=== PATIENT | male | born 1960 | race Caucasian/White ===

== ENCOUNTER 2019-05-12 | Emergency (ER) | payer SELFPAY ==
[2019-05-12 15:06] LABS: HEMATOCRIT 37.4 % (39.0-50.0); HEMOGLOBIN 13.1 g/dl (14.0-18.0); IMMATURE GRANULOCYTES 0.3 % (0.0-5.0); MEAN CELL VOLUME 99.5 fL CALC (80.0-100.0); MEAN CORPUSCULAR HGB 34.8 pG CALC (26.0-32.0); NEUT# 6.76 thou/uL (1.82-7.42); RED BLOOD COUNT 3.76 mill/uL (4.70-6.10); RED CELL DISTRI WIDTH 13.1 % (11.5-15.5)
[2019-05-12 15:23] LABS: BARBITURATES NEGATIVE (NEGATIVE); COCAINE NEGATIVE (NEGATIVE); METHADONE NEGATIVE (NEGATIVE); OXCYCODONE NEGATIVE (NEGATIVE); TETRAHYDROCANNABIONOL NEGATIVE (NEGATIVE); TRICYLIC ANTIDEPRESSANTS POSITIVE (NEGATIVE)
[2019-05-12 15:35] LABS: ANION GAP 21 (6-22 (CALC)); BUN 17 mg/dL (9-20); BUN/CREATININE RATIO 14 (12-20 (CALC)); CARBON DIOXIDE 21 mmol/l (22-30); CHLORIDE 97 mmol/l (95-108); CREATININE 1.2 mg/dL (0.7-1.3); ETHYL ALCOHOL 35 mg/dl (0-30); GFR > 60 ML/MIN (>=60 (CALC)); GFR FOR AFR.AMER. > 60 ML/MIN (>=60 (CALC)); POTASSIUM 3.9 mmol/l (3.5-5.1); SODIUM 135 mmol/l (137-146)
[2019-05-12] MEDS ORDERED: SILVADENE1 % EX (15:48)
[2019-05-12] MEDS ORDERED: CEPHALEXIN500 M1 PO (15:48)
[2019-05-12] MEDS ORDERED: TRAMADOL HYDROC50 MG PO (15:56)
[2019-05-12] MEDS ORDERED: LISINOPRIL2.5 MG PO (17:56)
[2019-05-12] MEDS ORDERED: ALLOPURINOL300 MG PO (17:56)
[2019-05-12] MEDS ORDERED: NORVASC5 M1 PO (17:57)
[2019-05-12] MEDS ORDERED: CARVEDILOL25 MG PO (17:57)
== END 2019-05-12 16:41 | disposition home or self-care (01) | DRG 934 ==
PROVIDERS: Family Medicine
PROC: 2W2SX4Z Dressing of Right Foot using Bandage (ICD-10-PCS; principal; 2019-05-12)
DX: T25.321A Burn of third degree of right foot, initial encounter (principal); T31.0 Burns involving less than 10% of body surface; X04.XXXA Exposure to ignition of highly flammable material, initial encounter; Y92.009 Unspecified place in unspecified non-institutional (private) residence as the place of occurrence of the external cause